=== PATIENT | male | born 1995 | race Caucasian/White ===

== ENCOUNTER 2018-04-22 02:56 | Emergency (ER) | payer OTHER ==
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
[2018-04-22] MEDS ORDERED: IBUPROFEN 800 MG TAB PO ONE (03:16)
[2018-04-22] MEDS ORDERED: HYDROCOD/APAP 5/325 PREPACK#6 BTL TAKEHOME ONE (04:20)
[2018-04-22 04:48] VITALS: BP 134/91
== END 2018-04-22 04:59 | disposition home or self-care (01) ==
DX: S42.032A Displaced fracture of lateral end of left clavicle, initial encounter for closed fracture (principal); V00.141A Fall from scooter (nonmotorized), initial encounter; Y92.9 Unspecified place or not applicable; Y93.9 Activity, unspecified; Y99.9 Unspecified external cause status
CPT/HCPCS: A4565